=== PATIENT | female | born 1975 | race Caucasian/White ===

== ENCOUNTER 2020-06-30 11:56 | Emergency (ER) | payer OTHER ==
[~2020-06-30] VITALS: Ht 162.6 cm; Wt 72.6 kg
[2020-06-30 12:15] VITALS: Ht 162.6 cm; Wt 72.6 kg
[2020-06-30 13:28] VITALS: BP 140/91
== END 2020-06-30 13:28 | disposition home or self-care (01) ==
LOC: ED 11:56
DX: S61.212A Laceration without foreign body of right middle finger without damage to nail, initial encounter (principal); W25.XXXA Contact with sharp glass, initial encounter; Y93.G1 Activity, food preparation and clean up; Y92.89 Other specified places as the place of occurrence of the external cause; Y99.8 Other external cause status
CPT/HCPCS: J2001

== ENCOUNTER 2020-07-11 06:02 | Emergency (ER) | payer OTHER ==
[~2020-07-11] VITALS: Ht 162.6 cm; Wt 74.4 kg
[2020-07-11 06:19] VITALS: Ht 162.6 cm; Wt 74.4 kg
[2020-07-11 06:45] VITALS: BP 117/80
== END 2020-07-11 06:45 | disposition home or self-care (01) ==
LOC: ED 06:02
DX: S61.212D Laceration without foreign body of right middle finger without damage to nail, subsequent encounter (principal); X58.XXXD Exposure to other specified factors, subsequent encounter